=== PATIENT | male | born 1940 | race Caucasian/White ===

== ENCOUNTER 2018-04-13 06:14 | Day surgery (SDC) | payer MEDICARE ==
[2018-04-13] MEDS: LIDOCAINE 1% MDV 20ML VIAL As Ordered (07:07)
[2018-04-13] MEDS: THROMBIN SOLN 5,000 UNITS VIAL As Ordered (07:07)
[2018-04-13] MEDS: LIDOCAINE VISCOUS 2% SOLN 15ML UDC As Ordered (07:08)
[2018-04-13 07:13] LABS: BEDSIDE GLUCOSE 118 MG/DL (83-110)
[2018-04-13] MEDS ORDERED: fentaNYL 100 MCG/2 ML INJECTION (J3010) As Ordered (08:51)
[2018-04-13] MEDS ORDERED: MIDAZOLAM INJ 2 MG/2 ML VIAL (J2250) As Ordered (08:51)
[2018-04-13] MEDS ORDERED: LIDOCAINE 2% INJ 100 MG/5 ML SDV (FOR ANES.) As Ordered (08:51)
[2018-04-13] MEDS ORDERED: PROPOFOL 200 MG/20 ML VIAL As Ordered (08:51)
[2018-04-13] MEDS ORDERED: ROCURONIUM BROMIDE 50 MG/5 ML VIAL As Ordered (08:51)
[2018-04-13] MEDS ORDERED: METOPROLOL 5 MG/5 ML VIAL As Ordered ×2 (08:52→08:55)
[2018-04-13] MEDS ORDERED: ONDANSETRON 4MG/2ML VIAL (J2405) As Ordered (08:56)
[2018-04-13] MEDS ORDERED: ePHEDrine SULFATE 25 MG/5 ML(5MG/ML) SYRINGE As Ordered (09:09)
[2018-04-13] MEDS ORDERED: SUGAMMADEX SODIUM 500 MG/5 ML VIAL (BRIDION) As Ordered (09:10)
[2018-04-13] MEDS: EPINEPHrine 1MG/10ML SYRINGE 1.5IN As Ordered (09:25)
[2018-04-13] MEDS: CETACAINE SPRAY 5GM As Ordered (09:33)
[2018-04-13 09:56] LABS: BEDSIDE GLUCOSE 155 MG/DL (83-110)
[2018-04-13] MEDS ORDERED: HYDROMORPHONE HCL 0.5 MG/ 0.5 ML SYRINGE (J1170 PER 1) IV (10:45)
[2018-04-13] MEDS ORDERED: PERCOCET 5MG/325MG TAB PO (10:45)
[2018-04-13] MEDS ORDERED: LR 1,000 ML IV (10:45)
[2018-04-13] MEDS ORDERED: fentaNYL 100 MCG/2 ML INJECTION (J3010) IV (10:45)
[2018-04-13] MEDS ORDERED: ONDANSETRON 4MG/2ML VIAL (J2405) IV (10:45)
== END 2018-04-13 11:23 | disposition home or self-care (01) ==
LOC: M SDC 06:14
DX: R91.8 Other nonspecific abnormal finding of lung field (principal); D69.3 Immune thrombocytopenic purpura; E10.9 Type 1 diabetes mellitus without complications; E03.9 Hypothyroidism, unspecified; N40.0 Benign prostatic hyperplasia without lower urinary tract symptoms; I10 Essential (primary) hypertension; K21.9 Gastro-esophageal reflux disease without esophagitis; T88.59XD Other complications of anesthesia, subsequent encounter; K42.9 Umbilical hernia without obstruction or gangrene; K59.00 Constipation, unspecified; Z79.899 Other long term (current) drug therapy; Z79.4 Long term (current) use of insulin; Z85.820 Personal history of malignant melanoma of skin; Z96.641 Presence of right artificial hip joint
CPT/HCPCS: 31629